=== PATIENT | female | born 1985 | race Two or more races ===

== ENCOUNTER 2020-07-25 10:46 | Inpatient (IN) | payer MEDICAID, OTHER ==
[~2020-07-25] VITALS: Ht 152.4 cm; Wt 74.9 kg
[2020-07-25 11:24] LABS: Basophils # (auto) 0 10 ^3/uL (0-0.2); Basophils % (auto) 0.6 % (0.0-2.0); Eosinophils # (auto) 0.1 10 ^3/uL (0-0.8); Eosinophils % (auto) 2.3 % (0.0-7.0); Hematocrit 39.5 % (36.0-46.0); Hemoglobin 13.2 g/dL (12.2-16.2); Lymphocytes # (auto) 2.1 10 ^3/uL (0.4-5.4); Lymphocytes % (auto) 33.6 % (10.0-50.0); Mean Corpuscular Hemoglobin 31.5 pg (28.0-32.0); Mean Corpuscular Hgb Conc. 33.5 g/dL (32.0-36.0); Monocytes # (auto) 0.4 10 ^3/uL (0-1.3); Monocytes % (auto) 7.3 % (0.0-12.0); Neutrophils # (auto) 3.5 10 ^3/uL (1.6-8.6); Neutrophils % (auto) 56.2 % (37.0-80.0); Platelet Count (auto) 314 10^3/uL (140-450); Red Cell Distribution Width 13.1 % (11.8-14.3); White Blood Cell 6.2 10^3/uL (4.4-10.8)
[2020-07-25 11:54] LABS: INR 0.97 (0.9-1.15); Partial Thromboplastin Time 30.4 sec (23.0-31.2)
[2020-07-25 16:15] LABS: Albumin 4.1 g/dL (3.4-5.0); Calcium 8.8 mg/dL (8.5-10.1); Potassium 3.7 mmol/L (3.5-5.1)
[2020-07-25 16:18] LABS: BUN/Creatinine Ratio 18.2; Bilirubin, Total 0.5 mg/dL (0.2-1.0); Total Protein 8.3 g/dL (6.4-8.2)
[2020-07-25] MEDS: D5W/LACTATED RINGERS 1,000 ML IV SCH (17:15)
[2020-07-25] MEDS ORDERED: HYDROmorphone HCL 2 MG/ML VL IV PRN (17:15)
--- NOTE | 2020-07-26 | NUR ---
MS admit from ER [facility] STEPHENS admitted to [facility]. Patient oriented to REY LAND RN, room 202. Patient weighed by bedscale and encouraged to call if they need something. All questions and concerns addressed, patient verbalized understanding. No S/S of distress, SOB or pain at this time. Pt is on room air with even and unlabored respirations. Bed locked, in lowest position, call light within reach, side rails up x2. Will continue to monitor Q1hr and PRN
[2020-07-26 01:00] VITALS: BP 106/72
[2020-07-26] MEDS: D5W/LACTATED RINGERS 1,000 ML IV SCH (03:06)
[2020-07-26 05:40] VITALS: BP 103/64
[2020-07-26 06:50] LABS: Basophils # (auto) 0 10 ^3/uL (0-0.2); Basophils % (auto) 0.5 % (0.0-2.0); Eosinophils # (auto) 0.2 10 ^3/uL (0-0.8); Eosinophils % (auto) 3.2 % (0.0-7.0); Hemoglobin 12.2 g/dL (12.2-16.2); Lymphocytes # (auto) 2.2 10 ^3/uL (0.4-5.4); Lymphocytes % (auto) 35.3 % (10.0-50.0); Mean Corpuscular Hemoglobin 31.7 pg (28.0-32.0); Mean Corpuscular Hgb Conc. 33.9 g/dL (32.0-36.0); Mean Corpuscular Volume 93.5 fL (80.0-100.0); Monocytes # (auto) 0.6 10 ^3/uL (0-1.3); Monocytes % (auto) 9.6 % (0.0-12.0); Neutrophils # (auto) 3.2 10 ^3/uL (1.6-8.6); Neutrophils % (auto) 51.4 % (37.0-80.0); Nucleated Red Blood Cells % 0.1 %; Platelet Count (auto) 297 10^3/uL (140-450); Red Blood Cells 3.86 10^6/uL (4.0-5.20); Red Cell Distribution Width 13.4 % (11.8-14.3); White Blood Cell 6.2 10^3/uL (4.4-10.8)
[2020-07-26 07:01] LABS: Albumin 3.1 g/dL (3.4-5.0); Calcium 7.8 mg/dL (8.5-10.1); Potassium 3.8 mmol/L (3.5-5.1)
[2020-07-26 07:04] LABS: BUN/Creatinine Ratio 22.8; Bilirubin, Total 0.3 mg/dL (0.2-1.0); Total Protein 6.5 g/dL (6.4-8.2)
--- NOTE | 2020-07-26 07:04 | NUR ---
Closing shift note No S/S of distress, SOB or pain noted. Will endorse care to day shift RN
--- NOTE | 2020-07-26 08:50 | NUR ---
Received new orders from Dr. Roe, noted and carried it out.
[2020-07-26 09:00] VITALS: BP 100/63
[2020-07-26] MEDS: SODIUM CHLORIDE 0.9% 1,000 ML IV SCH (09:25)
--- NOTE | 2020-07-26 12:30 | NUR ---
Dr. Roe at bedside, received new orders, noted and carried it out.
[2020-07-26 13:00] VITALS: BP 103/62
[2020-07-26 16:59] VITALS: BP 100/59
--- NOTE | 2020-07-26 19:35 | NUR ---
Opening Shift Note Assumed care of patient. Awake, alert and oriented x4. No S/S of distress/SOB or pain. Instructed on POC and to call for assist PRN. Bed locked, in lowest position, call light within reach, side rails up x2. Will continue to monitor for changes Q1hr and PRN.
[2020-07-26 22:00] VITALS: BP 114/76
[2020-07-27 05:00] VITALS: BP 100/60
--- NOTE | 2020-07-27 07:13 | NUR ---
Called lab regarding patient has lab orders since 5 AM, per lab will send someone to draw.
[2020-07-27 07:50] LABS: Basophils # (auto) 0 10 ^3/uL (0-0.2); Basophils % (auto) 0.4 % (0.0-2.0); Eosinophils # (auto) 0.2 10 ^3/uL (0-0.8); Eosinophils % (auto) 3.9 % (0.0-7.0); Hematocrit 35.2 % (36.0-46.0); Lymphocytes % (auto) 36.5 % (10.0-50.0); Mean Corpuscular Hemoglobin 32.1 pg (28.0-32.0); Mean Corpuscular Hgb Conc. 34.2 g/dL (32.0-36.0); Mean Corpuscular Volume 93.8 fL (80.0-100.0); Monocytes # (auto) 0.5 10 ^3/uL (0-1.3); Monocytes % (auto) 9.1 % (0.0-12.0); Neutrophils # (auto) 2.8 10 ^3/uL (1.6-8.6); Neutrophils % (auto) 50.1 % (37.0-80.0); Platelet Count (auto) 295 10^3/uL (140-450); Red Blood Cells 3.75 10^6/uL (4.0-5.20); Red Cell Distribution Width 13.1 % (11.8-14.3); White Blood Cell 5.6 10^3/uL (4.4-10.8)
[2020-07-27 09:00] VITALS: BP 95/57
[2020-07-27] MEDS: SODIUM CHLORIDE 0.9% 1,000 ML IV SCH (09:00)
[2020-07-27 12:51] VITALS: BP 103/67
--- NOTE | 2020-07-27 13:00 | NUR ---
Dr. Roe at bedside discussed with patient , patient agrees to take Methotrexate and per MD patient can DC home after injection and patient to F/U with MD in 1 week. All orders noted and carried it out.
--- NOTE | 2020-07-27 13:26 | NUR ---
Nutrition Assessment Notes Please refer to link for full assessment notes. Est Energy needs: 0602-9321 kcals (17-20 kcal/kgBW) Est Protein needs: 60-75 gms/day (0.8-1.0 gm/kgBW) Will continue to monitor and reassess prn. Addendum: 07/27/20 at [address] Amended: Links added.
[2020-07-27] MEDS ORDERED: METHOTREXATE 2.5 MG TAB PO ONE (13:30)
[2020-07-27] MEDS ORDERED: METHOTREXATE SODIUM 25 MG/ML 2ML SDV INJ IM ONE (13:30)
--- NOTE | 2020-07-27 13:30 | NUR ---
Informed Methotrexate does to MD. MD aware. Will give med to patient.
[2020-07-27 14:27] VITALS: BP 133/68
[2020-07-27 17:00] VITALS: BP 101/63
--- NOTE | 2020-07-27 17:30 | NUR ---
Discharge instructions given as ordered. Encourage to follow up with PMD (Follow up with Junior Roe Md in 08/04/2020 Address: [address], [place] [address] ) as instructed. All questions and concerns addressed. Patient verbalized understanding. Medication reconciliation form completed and copy given to patient. IV removed with catheter intact, pressure dressing applied. Patient taken to vehicle via wheelchair with all personal belongings, accompanied by staff and family member. No distress noted at time of departure.
== END 2020-07-27 17:30 | disposition home or self-care (01) | DRG 566 ==
LOC: ER 10:46 → OVERFLOW 10:47 → CENTRAL 23:23
PROVIDERS: ADMIT Specialist; ATTEND Specialist
DX: O00.90 Unspecified ectopic pregnancy without intrauterine pregnancy (principal); Z98.51 Tubal ligation status
CPT/HCPCS: 36415; 76801; 76817; 80053; 84702; 85025; 85610; 85730; 86850; 86900; 86901; 96360; 96361; G0378